=== PATIENT | male | born 1970 | race Caucasian/White ===

== ENCOUNTER 2018-09-17 11:32 | Emergency (ER) | payer MEDICAID ==
[2018-09-17 12:36] LABS: ADD MAN DIFF? NO
[2018-09-17 12:38] LABS: BASOPHILS % 0.2 % (0.0-2.0); EOSINOPHILS % 0.2 % (0.0-7.0); HEMATOCRIT 32.6 % (42.0-52.0); HEMOGLOBIN 10.9 g/dl (14.0-18.0); LYMPHOCYTES # 1.4 10^3/ul (0.8-2.9); LYMPHOCYTES % 7.1 % (15.0-51.0); MEAN CORPUSCULAR HEMOGLOBIN 30.5 pg (29.0-33.0); MEAN CORPUSCULAR HGB CONC 33.4 g/dl (32.0-37.0); MEAN CORPUSCULAR VOLUME 91.3 fl (82.0-101.0); MONOCYTE # 1.4 10^3/ul (0.3-0.9); MONOCYTES % 7.5 % (0.0-11.0); NEUTROPHILS % 84.1 % (39.0-77.0); PLATELET COUNT 223 10^3/UL (140-415); RED BLOOD COUNT 3.57 10^6/ul (4.70-6.10); RED CELL DISTRIBUTION WIDTH 12.9 % (11.5-14.5)
[2018-09-17] MEDS ORDERED: SODIUM CHLORIDE 0.9% 1L BAG IV* (12:55)
[2018-09-17 13:06] LABS: ANION GAP 13 (5-13); BLOOD UREA NITROGEN 51 mg/dl (7-20); CALCIUM 8.9 mg/dl (8.4-10.2); CARBON DIOXIDE 25 mmol/L (21-31); CHLORIDE 96 mmol/L (97-110); CREATININE 8.06 mg/dl (0.61-1.24); Estimated GFR 7 mL/min (>60); GLUCOSE 103 mg/dl (70-220); POTASSIUM 4.1 mmol/L (3.5-5.1); SODIUM 134 mmol/L (135-144)
[2018-09-17 13:18] LABS: TROPONIN-I 0.037 ng/ml (0.000-0.120)
[2018-09-17] MEDS: PIPER-TAZO 3.375 GM IV (PMX) 100 ML IVPB (13:56)
[2018-09-17] MEDS: SOD CHLORIDE 0.9% 1,000 ML IV (13:57)
[2018-09-17] MEDS: VANCOMYCIN 1 GM (PMX) 250 ML IVPB (14:39)
== END 2018-09-17 17:15 | disposition home or self-care (01) ==
LOC: E/R 11:32
DX: J18.1 Lobar pneumonia, unspecified organism (principal); R07.1 Chest pain on breathing; I12.9 Hypertensive chronic kidney disease with stage 1 through stage 4 chronic kidney disease, or unspecified chronic kidney disease; N18.9 Chronic kidney disease, unspecified; Z99.2 Dependence on renal dialysis
CPT/HCPCS: 36415; 71045; 71250; 80048; 83605; 84484; 85025; 87040; 93005; 96361; 96365; 96366; 96375; 99285-25